=== PATIENT | male | born 1980 | race Caucasian/White ===

== ENCOUNTER 2024-01-14 21:47 | Emergency (ER) | payer SELFPAY ==
[2024-01-14 21:51] VITALS: BP 164/108; PULSE 72; RESP 16; TEMP 36.6; O2SAT 100; BMI 23.4
[2024-01-14 21:57] VITALS: BP 164/108; PULSE 76; O2SAT 96
[2024-01-14 21:58] VITALS: BP 152/133; PULSE 82; O2SAT 96
--- NOTE | 2024-01-14 22:07 | XR_ITS ---
PROCEDURE INFORMATION: Exam: XR Cervical Spine Exam date and time: 01/14/2024 10:08 PM Age: 43 years old Clinical indication: Injury or trauma; Fall; Other: Pain; Additional info: Atraumatic pain, base of occiput/c1 after fall TECHNIQUE: Imaging protocol: Radiologic exam of the cervical spine. Views: 2 or 3 views. COMPARISON: No relevant prior studies available. FINDINGS: Bones/joints: Normal. No acute fracture. Normal alignment of the cervical spine. Very mild scoliosis of the upper thoracic spine convex left. The odontoid C1-C2 relationship are normal. Soft tissues: Unremarkable. IMPRESSION: No acute findings.
--- NOTE | 2024-01-14 22:07 | XR_ITS ---
PROCEDURE INFORMATION: Exam: XR Right Wrist Exam date and time: 01/14/2024 10:15 PM Age: 43 years old Clinical indication: Injury or trauma; Fall; Other: Pain; Additional info: Fall, pain and swelling TECHNIQUE: Imaging protocol: Radiologic exam of the right wrist. Views: 3 or more views. COMPARISON: No relevant prior studies available. FINDINGS: Bones/joints: The wrist is normally aligned. No acute fracture. No significant degenerative changes. Soft tissues: Normal. IMPRESSION: No acute findings.
--- NOTE | 2024-01-14 22:07 | XR_ITS ---
PROCEDURE INFORMATION: Exam: XR Right Forearm Exam date and time: 01/14/2024 10:17 PM Age: 43 years old Clinical indication: Injury or trauma; Fall; Other: Pain; Additional info: Distal foraerm pain TECHNIQUE: Imaging protocol: Radiologic exam of the right forearm. Views: 2 views. COMPARISON: CR XR WRIST RT MIN 3V 01/14/2024 10:15 PM FINDINGS: Bones/joints: The radius and ulna are intact. No acute fracture. The wrist and elbow are normally aligned. Soft tissues: Normal. IMPRESSION: No acute findings.
--- NOTE | 2024-01-14 22:10 | ED_ITS ---
Discharge Plan Disposition Patient Disposition: Home, Self-Care Prescriptions Prescriptions: New methocarbamol 750 mg tablet 1,500 mg PO TID 5 Days Qty: 30 0RF lidocaine 5 % adhesive patch,medicated 1 patch topical DAILY Qty: 30 0RF Rx Instructions: leave on most painful area for up to 12 hrs Referrals Follow up/Referrals: Provider,Referral, [Primary Care Provider] - See instructions Activity Restrictions/Add. Instructions Additional Instructions/Restrictions: No evidence of fracture or dislocation on your x-rays. You may have sprained or bruised it. Please take Tylenol and ibuprofen as needed for pain. Please use lidocaine patches and Robaxin as prescribed. Clinical Impressions Clinical Impression: Arm pain Qualifiers: Laterality: right Qualified Code(s): M79.601 - Pain in right arm Instructions Patient Instructions: DI for Acute Abdominal Pain Print Language Print Language: Vietnamese Discharge ED Provider: Norbert Sanabria General Adult HPI <John Pelaez MD - Last Filed: 01/14/24 23:07> General Chief complaint: Abdominal Pain Stated complaint: pain right wrist going up to neck Time Seen by Provider: 01/14/24 21:57 Mode of Arrival: Ambulatory Source of Information: Patient Limitations: Language Barrier Description of Symptoms (Recalled from ER Triage Doc. by RN): Patient reports pain in right wrist and back of neck. States he was cutting a tree down 4 days ago and dropped a stump, causing him to fall and land on his wrist. Two days after his fall he noticed some pain down the right, back side of his neck. History of Present Illness HPI narrative: Please note that above description of symptoms, in this electronic medical record under categorization of recalled from ER triage doctor by RN are reflective of an initial nursing assessment, however, is not reflective of my full history and physical exam that was personally taken and clarified. Consequentially, this preceding description of symptoms, which may include the patient's categorized chief complaint in the EMR, do not reflect my personal clinical impression, and the ultimate description of history of present illness and patient stated complaints should be deferred to this section of the note. Unless stated otherwise or congruent with this section of the note, additional signs, symptoms, or incongruence should be interpreted as inaccurate with my clinical impression. Related Data Previous Rx's ?Medication ?Instructions ?Recorded lidocaine 5 % topical patch 1 patch topical DAILY #30 ea 01/14/24 methocarbamol 750 mg tablet 1,500 mg (2 x 750 mg) PO TID 5 01/14/24 days #30 tabs Allergies Allergy/AdvReac Type Severity Reaction Status Date / Time No Known Allergies Allergy Verified 01/14/24 22:10 [facility] <John Pelaez MD - Last Filed: 01/14/24 23:07> [facility] Disclaimer: The information contained in this section may have been updated after the p atient was seen, as this information can be updated by other users. Social History (Updated 01/14/24 @ 23:07 by John Pelaez MD) Smoking Status: Never smoker alcohol intake: never current occupational status: employed Travel in the last 8 weeks: None <John Pelaez MD - Last Filed: 01/14/24 23:07> ROS Obtained: Yes All systems reviewed & no additional complaints except as documented Physical Exam <John Pelaez MD - Last Filed: 01/14/24 23:07> General General appearance: alert Head Head exam: atraumatic, normocephalic and other (Tenderness at base of occiput on the right side at the insertion of trapezius.) Eye Eye exam: Present normal appearance, PERRL and EOMI Neck Neck exam: Present normal inspection, full ROM and trachea midline; Absent tenderness (No midline spinal tenderness) Respiratory Respiratory exam: Absent respiratory distress, wheezes, stridor, accessory muscle use or prolonged expiratory phase Cardiovascular Cardiovascular exam: Present other (Pulses equal symmetric in upper and lower extremities) Abdominal Exam Abdominal exam: Present soft; Absent distention, tenderness or pulsatile mass Extremities Exam Extremities exam: Present edema and other (Tenderness and swelling at distal aspect of right forearm. Neurovascularly intact and range of motion intact, but limited secondary to pain.) Neurological Exam Neurological exam: Present alert, oriented X3 and CN II-XII intact; Absent motor sensory deficit Skin Skin exam: Present warm and dry; Absent diaphoresis or erythema Medical Decision Making <John Pelaez MD - Last Filed: 01/14/24 23:07> Medical Records Medical records reviewed: Yes I reviewed the patient's medical records. Screening: Per USPSTF and CDC recommendations, given the prevalence of disease in our region, it is our hospital?s policy to screen for HIV and viral Hepatitis for all patients aged 18 and over and those with ongoing risk factors. [place] Inquiry Pt receiving controlled substance: No [place] was queried for this patient: No Vital Signs: 01/14/24 21:51 01/14/24 21:57 01/14/24 21:58 Temperature 97.9 F Temperature Source Oral Pulse Rate 76 82 Pulse Rate [Right Radial] 72 Respiratory Rate 16 Blood Pressure 164/108 H 152/133 H Blood Pressure [Right Arm] 164/108 H Blood Pressure Mean [Right Arm] 126 Blood Pressure Source [Right Arm] Automatic Cuff Blood Pressure Position [Right Arm] Sitting 02 Sat by Pulse Oximetry 100 96 96 Oxygen Delivery Method Room Air Orders (Tests/Meds): ED MEDICATIONS Discontinued Medications Generic Name Dose Route Start Last Admin Trade Name Freq PRN Reason Stop Dose Admin Acetaminophen 1,000 mg 01/14/24 22:05 01/14/24 22:20 Acetaminophen 1,000mg/100ml Vial IV 01/14/24 22:06 Not Given ONCE ONE Acetaminophen 1,000 mg 01/14/24 22:17 01/14/24 22:19 Acetaminophen 500mg Tab PO 01/14/24 22:18 1,000 mg ONCE ONE Administration Dexamethasone 10 mg 01/14/24 22:05 01/14/24 22:18 Dexamethasone 4mg Tablet PO 01/14/24 22:06 10 mg ONCE ONE Administration Ketorolac Tromethamine 15 mg 01/14/24 22:05 01/14/24 22:19 Ketorolac 30mg/Ml Vial IM 01/14/24 22:06 15 mg ONCE ONE Administration Lidocaine 1 each 01/14/24 22:05 01/14/24 22:18 Lidocaine 5% Transdermal Patch TP 01/14/24 22:06 1 each ONCE ONE Administration Methocarbamol 1,500 mg 01/14/24 22:05 01/14/24 22:18 Methocarbamol 500mg Tablet PO 01/14/24 22:06 1,500 mg ONCE ONE Administration ORDERS Category Date Time Status Cervical spine XR 3 views [XR cervical spine 3V] Stat Exams 01/14/24 22:07 Completed Forearm XR right 2 views [XR forearm RT 2V] Stat Exams 01/14/24 22:07 Completed Wrist XR right minimum 3 views [XR wrist RT min 3V] Exams 01/14/24 22:07 Completed Stat Medical Decision Narrative: 43-year-old male no relevant medical history presenting with right wrist and neck pain. 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 Had immediate pain in his right wrist. He has had pain in that wrist since that time and is still currently having pain. Try to take ibuprofen and Tylenol, these of helped minimally. It is moderate in intensity, made worse with range of motion and activity. Patient states that 4 days prior to this, he started having pain at the base of his skull in the muscles on the right side of his neck. The pains do not seem to be related. Neck pain not radiating down his arm. Neck/head pain made worse with turning his head to the right, made better with not turning his head to the right. Denies fevers, chills, vision changes, left upper extremity symptoms, right lower extremity symptoms, etc. History was obtained via conversation with patient. On arrival, patient hemodynamically stable, alert, oriented x4, appropriate, GCS 15, moving all extremities spontaneously, pupils equal and reactive to light. Full physical exam performed and significant for well-appearing male who is in no acute distress. He does have tenderness at base of occiput at occipital condyle and insertion of trapezius muscle as well as down the trapezius muscle toward the shoulder. No midline spinal tenderness. Range of motion is intact, no meningismus. Patient does have swelling and tenderness at distal aspect of right radius with normal range of motion, neurovascularly intact. Differential includes cervical myofascial strain, fracture, sprain, dislocation, among others. Patient's pain was treated with Toradol, acetaminophen, lidocaine patch, Robaxin. Independent to rotation of x-rays demonstrate no obvious, acute bony abnormality of the wrist or forearm. No evidence of carpal dislocation. Patient cervical spine x-rays were independently interpreted and insignificant for any acute injury. This was relayed to patient who voiced his understanding. Prior to final radiology reads, care handed off to oncoming physician. Medical Record Transcriber disclaimer Much of this encounter note is an electronic brake repairer hydraulic spoken language to printed text. Electronic brake repairer hydraulic of the spoken language may permit errors. Although I have reviewed the note, some errors may still exist. <Norbert Sanabria MD - Last Filed: 01/14/24 23:27> Vital Signs: 01/14/24 21:51 01/14/24 21:57 01/14/24 21:58 Temperature 97.9 F Temperature Source Oral Pulse Rate 76 82 Pulse Rate [Right Radial] 72 Respiratory Rate 16 Blood Pressure 164/108 H 152/133 H Blood Pressure [Right Arm] 164/108 H Blood Pressure Mean [Right Arm] 126 Blood Pressure Source [Right Arm] Automatic Cuff Blood Pressure Position [Right Arm] Sitting 02 Sat by Pulse Oximetry 100 96 96 Oxygen Delivery Method Room Air Orders (Tests/Meds): ED MEDICATIONS Discontinued Medications Generic Name Dose Route Start Last Admin Trade Name Artie PRN Reason Stop Dose Admin Acetaminophen 1,000 mg 01/14/24 22:05 01/14/24 22:20 Acetaminophen 1,000mg/100ml Vial IV 01/14/24 22:06 Not Given ONCE ONE Acetaminophen 1,000 mg 01/14/24 22:17 01/14/24 22:19 Acetaminophen 500mg Tab PO 01/14/24 22:18 1,000 mg ONCE ONE Administration Dexamethasone 10 mg 01/14/24 22:05 01/14/24 22:18 Dexamethasone 4mg Tablet PO 01/14/24 22:06 10 mg ONCE ONE Administration Ketorolac Tromethamine 15 mg 01/14/24 22:05 01/14/24 22:19 Ketorolac 30mg/Ml Vial IM 01/14/24 22:06 15 mg ONCE ONE Administration Lidocaine 1 each 01/14/24 22:05 01/14/24 22:18 Lidocaine 5% Transdermal Patch TP 01/14/24 22:06 1 each ONCE ONE Administration Methocarbamol 1,500 mg 01/14/24 22:05 01/14/24 22:18 Methocarbamol 500mg Tablet PO 01/14/24 22:06 1,500 mg ONCE ONE Administration ORDERS Category Date Time Status Cervical spine XR 3 views [XR cervical spine 3V] Stat Exams 01/14/24 22:07 Completed Forearm XR right 2 views [XR forearm RT 2V] Stat Exams 01/14/24 22:07 Completed Wrist XR right minimum 3 views [XR wrist RT min 3V] Exams 01/14/24 22:07 Completed Stat Medical Decision Narrative: 43-year-old male no relevant medical history presenting with right wrist and neck pain. 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 Had immediate pain in his right wrist. He has had pain in that wrist since that time and is still currently having pain. Try to take ibuprofen and Tylenol, these of helped minimally. It is moderate in intensity, made worse with range of motion and activity. Patient states that 4 days prior to this, he started having pain at the base of his skull in the muscles on the right side of his neck. The pains do not seem to be related. Neck pain not radiating down his arm. Neck/head pain made worse with turning his head to the right, made be tter with not turning his head to the right. Denies fevers, chills, vision changes, left upper extremity symptoms, right lower extremity symptoms, etc. History was obtained via conversation with patient. On arrival, patient hemodynamically stable, alert, oriented x4, appropriate, GCS 15, moving all extremities spontaneously, pupils equal and reactive to light. Full physical exam performed and significant for well-appearing male who is in no acute distress. He does have tenderness at base of occiput at occipital condyle and insertion of trapezius muscle as well as down the trapezius muscle toward the shoulder. No midline spinal tenderness. Range of motion is intact, no meningismus. Patient does have swelling and tenderness at distal aspect of right radius with normal range of motion, neurovascularly intact. Differential includes cervical myofascial strain, fracture, sprain, dislocation, among others. Patient's pain was treated with Toradol, acetaminophen, lidocaine patch, Robaxin. Independent to rotation of x-rays demonstrate no obvious, acute bony abnormality of the wrist or forearm. No evidence of carpal dislocation. Patient cervical spine x-rays were independently interpreted and insignificant for any acute injury. This was relayed to patient who voiced his understanding. Prior to final radiology reads, care handed off to oncoming physician. Medical Record Transcriber disclaimer Much of this encounter note is an electronic brake repairer hydraulic spoken language to printed text. Electronic brake repairer hydraulic of the spoken language may permit errors. Although I have reviewed the note, some errors may still exist. Elly CASTILLO: I assumed care of the patient at the time of handoff from the prior provider. On reassessment patient remains hemodynamically stable. Radiographs show no ev idence of acute fracture or dislocation on my interpretation. Patient was discharged in stable condition with prescription for symptomatic care. Critical Care <John Pelaez MD - Last Filed: 01/14/24 23:07> Critical Care Time Critical Care Time: No
[2024-01-14] MEDS: DEXAMETHASONE 4MG TABLET 10 MG PO (22:18)
[2024-01-14] MEDS: METHOCARBAMOL 500MG TABLET 1500 MG PO (22:18)
[2024-01-14] MEDS: LIDOCAINE 5% TRANSDERMAL PATCH 1 EACH TP (22:18)
[2024-01-14] MEDS: KETOROLAC 30MG/ML VIAL 15 MG IM (22:19)
[2024-01-14] MEDS: ACETAMINOPHEN 500MG TAB 1000 MG PO (22:19)
[2024-01-14 23:30] VITALS: BP 136/93; PULSE 61; RESP 20; TEMP 36.8; O2SAT 98
== END 2024-01-14 23:35 | disposition home or self-care (01) ==
PROVIDERS: Emergency Provider Emergency Medicine
DX: M79.601 Pain in right arm (principal); M54.2 Cervicalgia
CPT/HCPCS: 72040; 73090; 73110; 96372; 96374; 99284; J1885; J8540